=== PATIENT | female | born 1960 | race Caucasian/White ===

== ENCOUNTER 2017-08-21 09:49 | Inpatient (IN) | payer BC ==
[~2017-08-21] VITALS: Ht 154.9 cm; Wt 93.2 kg
[2017-08-21] VITALS (14 sets, daily range): BP systolic 131–163; BP diastolic 53–88
[~2017-08-21 09:49] MED LIST: CLONAZEPAM0.5 MG PO; OXCARBAZEPINE300 MG PO; RISPERDAL1 MG PO
[2017-08-21 11:33] LABS: HEMATOCRIT 21.8 % (36.0-46.0); MCV 56.9 FL (83-99)
[2017-08-21 11:34] LABS: HEMOGLOBIN 5.7 G/DL (11.9-15.5)
[2017-08-21 12:12] LABS: ALBUMIN 3.9 g/dL (3.2-4.8); CHLORIDE 106 mEq/L (99-109); POTASSIUM 4.3 mEq/L (3.7-5.4); SODIUM 136 mEq/L (136-147)
[2017-08-21 12:14] LABS: MCH 14.9 PG (29.0-34.0); MCHC 26.3 G/DL (30.0-36.0); PLATELET COUNT 351 K/uL (156-360); RBC DIS.WIDTH-SD 38.3 % (39-53); RED BLOOD COUNT 3.82 M/uL (3.80-5.20); WHITE BLOOD COUNT 6.2 K/uL (4.1-10.2)
[2017-08-21 12:15] LABS: GLUCOSE 98 mg/dL (70-99); TOTAL PROTEIN 6.4 g/dL (6.4-8.3)
[2017-08-21 12:16] LABS: TOTAL BILIRUBIN 0.4 mg/dL (0.0-1.0)
[2017-08-21 12:18] LABS: ALKALINE PHOSPHATASE 59 IU/L (3-129); CREATININE 0.7 mg/dL (0.6-1.3); GFR ESTIMATE (CALCULATED) > 59 mL/min/
[2017-08-21 12:19] LABS: UREA NITROGEN (BUN) 8 mg/dL (9-23)
[2017-08-21 12:20] LABS: AST (GOT) 15 IU/L (2-34); DIRECT BILIRUBIN 0.2 mg/dL (0.0-0.3)
[2017-08-21 12:21] LABS: ALT (GPT) 11 IU/L (3-49)
[2017-08-21 13:14] LABS: INTER. NORMALIZED RATIO 1.1
[2017-08-21 13:17] LABS: PTT 25.3 SEC (25-37)
[2017-08-21 13:22] LABS: FERRITIN 2 NG/ML (10-291)
[2017-08-21 13:30] LABS: TRANSFERRIN (TIBC) 414.7 mg/dL (215-380)
[2017-08-21] MEDS ORDERED: SYNTHROID50 MCG PO (14:02)
[2017-08-21] MEDS ORDERED: CARTIA XT300 MG PO (14:03)
[2017-08-21] MEDS ORDERED: POTASSIUM-9999 MG PO (14:03)
[2017-08-21] MEDS ORDERED: PROTONIX40 MG PO (14:03)
[2017-08-21] MEDS ORDERED: ZOCOR20 MG PO (14:03)
[2017-08-21] MEDS ORDERED: IMITREX6 MG/0.5 M SC (14:04)
[2017-08-21 18:28] LABS: IMM.RETIC FRACTION 11.5 % (3-19); RETIC HGB EQUIVALENT 13.8 (28-36); RETICULOCYTE COUNT 2.1 % (0.5-1.8)
[2017-08-22] VITALS (8 sets, daily range): BP systolic 128–145; BP diastolic 58–73
[2017-08-22 07:26] LABS: CHLORIDE 109 MEQ/L (99-109); CREATININE 0.6 MG/DL (0.6-1.3); GFR ESTIMATE (CALCULATED) > 59 mL/min/; GLUCOSE 85 mg/dL (70-99); POTASSIUM 3.9 MEQ/L (3.7-5.4); SODIUM 139 MEQ/L (136-147); UREA NITROGEN (BUN) 6 mg/dL (9-23)
[2017-08-22 08:06] LABS: HEMATOCRIT 29.3 % (36.0-46.0); PLATELET COUNT 304 K/uL (156-360); RBC DIS.WIDTH-CV 28.4 % (11.8-14.6); RBC DIS.WIDTH-SD 61.1 % (39-53); WHITE BLOOD COUNT 7.8 K/uL (4.1-10.2)
[2017-08-22 08:11] LABS: HEMOGLOBIN 8.5 G/DL (11.9-15.5); MCH 18.9 PG (29.0-34.0); MCV 65.1 FL (83-99)
[2017-08-22 10:56] LABS: IRON 27 MCG/DL (35-150)
[2017-08-22 11:00] LABS: STOOL OCCULT BLD 1ST SPECIMEN NEGATIVE
[2017-08-23 03:25] VITALS: BP 155/73
[2017-08-23 05:55] LABS: BASOPHIL (%) 0.8 % (0-1); BASOPHIL COUNT 0.1 K/uL (0-0.1); EOSINOPHIL (%) 4.9 % (0-5); EOSINOPHIL COUNT 0.4 K/uL (0-0.3); HEMATOCRIT 32.4 % (36.0-46.0); HEMOGLOBIN 9.2 G/DL (11.9-15.5); IMMATURE GRANULOCYTE (%) 0.4 % (0.0-0.7); LYMPHOCYTE COUNT 2.3 K/uL (1.0-2.8); MCH 18.6 PG (29.0-34.0); MCHC 28.4 G/DL (30.0-36.0); MCV 65.5 FL (83-99); MONOCYTE (%) 8.1 % (3-12); MONOCYTE COUNT 0.7 K/uL (0-0.8); NEUTROPHIL (%) 58.8 % (45-76); PLATELET COUNT 316 K/uL (156-360); RBC DIS.WIDTH-CV 29.2 % (11.8-14.6); RBC DIS.WIDTH-SD 63.1 % (39-53); RED BLOOD COUNT 4.95 M/uL (3.80-5.20); WHITE BLOOD COUNT 8.5 K/uL (4.1-10.2)
[2017-08-23 06:14] LABS: ALBUMIN 3.8 G/DL (3.2-4.8); ALKALINE PHOSPHATASE 52 IU/L (3-129); ALT (GPT) 8 IU/L (3-49); AST (GOT) 9 IU/L (2-34); CHLORIDE 108 MEQ/L (99-109); CREATININE 0.6 MG/DL (0.6-1.3); GFR ESTIMATE (CALCULATED) > 59 mL/min/; GLUCOSE 93 mg/dL (70-99); POTASSIUM 4.2 MEQ/L (3.7-5.4); SODIUM 141 MEQ/L (136-147); TOTAL BILIRUBIN 0.7 MG/DL (0.0-1.0); TOTAL PROTEIN 6.1 G/DL (6.4-8.3); UREA NITROGEN (BUN) 10 mg/dL (9-23)
[2017-08-23 07:04] VITALS: BP 131/74
[2017-08-23 11:50] VITALS: BP 151/89
[2017-08-23 17:23] VITALS: BP 198/81
[2017-08-23 19:42] VITALS: BP 143/69
[2017-08-23 23:38] VITALS: BP 131/62
[2017-08-24 07:20] VITALS: BP 125/64
[2017-08-24 11:23] LABS: HEMATOCRIT 30.4 % (36.0-46.0); HEMOGLOBIN 8.8 G/DL (11.9-15.5); MCV 65.7 FL (83-99)
[2017-08-24] MEDS ORDERED: FEOSOL325 MG PO (12:10)
== END 2017-08-24 12:30 | disposition home or self-care (01) | DRG 812 ==
LOC: EME 09:49 → 2EAST 13:16 → EDOF 13:16 → ENRESERV 13:19 → 2EAST 17:06
PROVIDERS: Emergency Medicine; Hospitalist; Internal Medicine
DX: D50.9 Iron deficiency anemia, unspecified (principal); K31.89 Other diseases of stomach and duodenum; K44.9 Diaphragmatic hernia without obstruction or gangrene; G43.909 Migraine, unspecified, not intractable, without status migrainosus; E78.5 Hyperlipidemia, unspecified; I10 Essential (primary) hypertension; K21.9 Gastro-esophageal reflux disease without esophagitis; E66.9 Obesity, unspecified; F32.9 Major depressive disorder, single episode, unspecified; Z68.38 Body mass index [BMI] 38.0-38.9, adult; Z90.5 Acquired absence of kidney; Z23 Encounter for immunization; Z80.7 Family history of other malignant neoplasms of lymphoid, hematopoietic and related tissues
CPT/HCPCS: 71046; 71250; 71260; 74177; 80048; 80053; 82248; 82272; 82607; 82728; 82746; 83540; 84466; 85014; 85018; 85025; 85027; 85046; 85610; 85730; 86850; 86900; 86901; 86920; 90686; 94799; 99281; 99285; C9113; J2250; J7030; P9016

== ENCOUNTER 2017-09-25 22:26 | Inpatient (IN) | payer BC ==
[~2017-09-25] VITALS: Ht 154.9 cm; Wt 98.4 kg
[~2017-09-25 22:26] MED LIST changes: +CARTIA XT300 MG PO; +FEOSOL325 MG PO; +IMITREX6 MG/0.5 M SC; +POTASSIUM-9999 MG PO; +PROTONIX40 MG PO; +SYNTHROID50 MCG PO; +ZOCOR20 MG PO
[2017-09-26 11:44] VITALS: BP 131/82
[2017-09-26 11:58] LABS: INTER. NORMALIZED RATIO 1.1
[2017-09-26 12:01] LABS: PTT 32.7 SEC (25-37)
[2017-09-26 19:39] VITALS: BP 109/57
[2017-09-27] VITALS (7 sets, daily range): BP systolic 100–133; BP diastolic 50–64
[2017-09-27 06:06] LABS: HEMATOCRIT 37.8 % (36.0-46.0); HEMOGLOBIN 11.6 G/DL (11.9-15.5); MCH 23.5 PG (29.0-34.0); MCHC 30.7 G/DL (30.0-36.0); MCV 76.5 FL (83-99); PLATELET COUNT 209 K/uL (156-360); RED BLOOD COUNT 4.94 M/uL (3.80-5.20); WHITE BLOOD COUNT 12.9 K/uL (4.1-10.2)
[2017-09-27 06:30] LABS: CHLORIDE 107 MEQ/L (99-109); CREATININE 0.6 MG/DL (0.6-1.3); GFR ESTIMATE (CALCULATED) > 59 mL/min/; GLUCOSE 122 mg/dL (70-99); POTASSIUM 4.7 MEQ/L (3.7-5.4); SODIUM 139 MEQ/L (136-147); UREA NITROGEN (BUN) 12 mg/dL (9-23)
[2017-09-28 03:30] VITALS: BP 130/63
[2017-09-28 07:08] LABS: HEMATOCRIT 34.1 % (36.0-46.0); HEMOGLOBIN 10.4 G/DL (11.9-15.5); MCH 23.8 PG (29.0-34.0); MCHC 30.5 G/DL (30.0-36.0); PLATELET COUNT 167 K/uL (156-360); RED BLOOD COUNT 4.37 M/uL (3.80-5.20)
[2017-09-28 07:30] VITALS: BP 135/61
[2017-09-28 07:38] LABS: CHLORIDE 105 MEQ/L (99-109); CREATININE 0.7 MG/DL (0.6-1.3); GFR ESTIMATE (CALCULATED) > 59 mL/min/; GLUCOSE 101 mg/dL (70-99); SODIUM 143 MEQ/L (136-147); UREA NITROGEN (BUN) 9 mg/dL (9-23)
[2017-09-28 12:32] VITALS: BP 146/64
[2017-09-28 17:19] VITALS: BP 154/69
[2017-09-28 20:28] VITALS: BP 151/69
[2017-09-29] VITALS (7 sets, daily range): BP systolic 140–162; BP diastolic 65–74
[2017-09-29 07:16] LABS: HEMATOCRIT 31.5 % (36.0-46.0); HEMOGLOBIN 9.6 G/DL (11.9-15.5); MCH 24.1 PG (29.0-34.0); MCHC 30.5 G/DL (30.0-36.0); MCV 78.9 FL (83-99); PLATELET COUNT 156 K/uL (156-360); RED BLOOD COUNT 3.99 M/uL (3.80-5.20); WHITE BLOOD COUNT 7.3 K/uL (4.1-10.2)
[2017-09-29 07:43] LABS: CHLORIDE 109 MEQ/L (99-109); CREATININE 0.5 MG/DL (0.6-1.3); GFR ESTIMATE (CALCULATED) > 59 mL/min/; GLUCOSE 81 mg/dL (70-99); POTASSIUM 3.5 MEQ/L (3.7-5.4); SODIUM 144 MEQ/L (136-147); UREA NITROGEN (BUN) 10 mg/dL (9-23)
[2017-09-30 03:29] VITALS: BP 136/63
[2017-09-30 08:24] VITALS: BP 141/66
[2017-09-30 11:44] VITALS: BP 128/56; BP 157/78
[2017-09-30 16:01] VITALS: BP 163/70
[2017-09-30] MEDS ORDERED: NORCO 5/3251 TABLET PO (18:14)
[2017-09-30] MEDS ORDERED: COLACE100 MG PO (18:14)
[2017-09-30] MEDS ORDERED: VITAMIN C500 M1 PO (18:14)
== END 2017-09-30 21:23 | disposition home or self-care (01) | DRG 328 ==
LOC: ENRESERV 22:26 → 2SOUTH 09-26 09:05 → ENRESERV 09-26 11:52 → 2SOUTH 09-26 13:00 → ENRESERV 09-26 13:32 → 2EAST 09-26 19:29
PROVIDERS: Thoracic Surgery (Cardiothoracic Vascular Surgery)
DX: K44.9 Diaphragmatic hernia without obstruction or gangrene (principal); K31.89 Other diseases of stomach and duodenum; D50.9 Iron deficiency anemia, unspecified; E03.9 Hypothyroidism, unspecified; I10 Essential (primary) hypertension; K21.9 Gastro-esophageal reflux disease without esophagitis; G43.909 Migraine, unspecified, not intractable, without status migrainosus; Z80.7 Family history of other malignant neoplasms of lymphoid, hematopoietic and related tissues; Z82.49 Family history of ischemic heart disease and other diseases of the circulatory system; Z90.5 Acquired absence of kidney
CPT/HCPCS: 71045; 80048; 82948; 85027; 85610; 85730; 86850; 86900; 86901; 86920; 93005; 94799; 97530 GO; J0131; J0330; J0690; J1100; J1644; J1885; J2250; J2405; J2710; J3010; J7050; J7120; S0020; S0028